=== PATIENT | male | born 1960 | race Caucasian/White ===

== ENCOUNTER 2023-07-02 10:10 | Emergency (ER) | payer MEDICARE, OTHER, SELFPAY ==
[2023-07-02 10:15] VITALS: BP 133/76
--- NOTE | 2023-07-02 10:55 | ED.GENMED ---
History of Present Illness
General
Chief Complaint: Chest Pain
Source: patient
Exam Limitations: none
Time Seen by Provider: 07/02/23 10:23
Nursing documentation reviewed up to this point in time: agreed with
Travel History
Have you had any contact with someone who has COVID-19?: No
Do you have any symptoms of coronavirus? Fever > 100 degrees, chills, cough, shortness of breath, sore throat, loss of taste or smell, muscle aches, or headache?: No
History of Present Illness
History of Present Illness:
pt is a 62 y/o M with h/o hiatal hernia, gerd
started with chest rachel that felt like a squeezing in the center of his chest yetserday am when he woke up which has been constant since then
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
presumed he was jut feeling stres yesterday
but he has felt the need to take deeper breaths and feels a little bit more out of breath which is a newer symptom. This does not feel like his previous acid reflux symptoms. He takes PPI daily for the when he took it today. Patient said when he
woke up this morning he still had the symptoms so he decided to come in. He has not really had any exertional chest pain or exertional shortness of breath. He feels worse lying flat. Patient said he saw agriculture extension specialist in his 20s when he had some
inflammation around his heart. He did not know if he had a viral cardiomyopathy myocarditis or what. He did not recall any details. He otherwise does not have any known cardiac disease. He has not had any recent long travel, previous history of
DVT or PE. Patient denies that the pain is radiating through to his back, jaw, neck, arm. He has been told he was prediabetic at 1 point but was taken off the metformin
Past History
Past History
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
ED Past Surgical History: Orthopedic
Social History
Tobacco: Non-smoker
Alcohol: Occasional
Drug: None
Personal:
Living: with family
Employment: Disabled
Family History
Family History: Other (Noncontributory)
Review of Systems
Review of Systems
Allergies reviewed?: Yes
All Other Systems: Not applicable
Phy Exam
Physical Exam
Physical Exam:
GENERAL: Alert , in no apparent distress
EYE: pupils equal and reactive
NECK: Supple
ENT: o/p clr, mmm.
CARDIAC: Regular rate and rhythm .no edema
LUNGS: Clear breath sounds bilaterally, no acute respiratory distress, no wheezes/rales/rhonchi
ABDOMEN: Soft, without focal tenderness, no r/g, no cvat, normal bowel sounds
NEUROLOGICAL: Alert and oriented, no focal neuro deficits
SKIN: Warm and dry, skin intact.
MUSCULOSKELETAL: No edema, well perfused. neg tristan's sign
PSYCH: Normal and appropriate interaction.
Scores
Heart Score for Chest Pain Patients
STEMI patient?: No
History: Slightly or Non-Suspicious
ECG: Normal
Age: >45 - <65 years
Risk Factors: 1 or 2 Risk Factors
Troponin: </= Normal Limit
Heart Score for Chest Pain Patients: 2
Heart Score Risk: 2.5% MACE over next 6 weeks
Course
Orders/Labs/Results
Orders:
Orders
07/02/23 10:17
Electrocardiogram (*1) Urgent
Reason for Study: Chest Pain
07/02/23 10:18
EKG- Treatment ONCE
07/02/23 10:56
Cardiac Monitoring- Treatment ONCE
Aspirin Chewable [Low Strength Aspirin] 324 mg PO NOW STA
CR Chest - 2 Views Urgent
Comment:
Reason For Exam: chest pain
07/02/23 11:08
Complete Blood Count/With Diff Urgent
Comprehensive Metabolic Panel Urgent
D-Dimer Urgent
Lipase Urgent
Troponin I Urgent
Abnormal Lab Results
07/02/23
11:08
MCH 31.7 H pg
(27.0-31.0)
Abs Immat Gran (auto) 0.1 H 10^3/uL
(0-0.05)
Immature Gran % 0.8 H %
(0-0.5)
Glucose 146 H mg/dl
(70-99)
Alkaline Phosphatase 132 H U/L
(38-126)
07/02/23 11:08
07/02/23 11:08
Vital Signs
Initial and Last Documented VS:
Initial Vital Signs
Temp Pulse Resp BP Pulse Ox
97.8 F 88 18 133/76 96
07/02/23 10:15 07/02/23 10:15 07/02/23 10:15 07/02/23 10:15 07/02/23 10:15
Last Documented Vital Signs
Temp Pulse Resp BP Pulse Ox
97.8 F 77 19 122/88 96
07/02/23 10:15 07/02/23 11:15 07/02/23 11:15 07/02/23 11:00 07/02/23 12:10
MDM/Problems Addressed
Differential Diagnosis Includes:
chestp ain/ ACS, PE, gerd, stress
MDM/Problems Addressed:
62 y/o M with h/o htn in epast, fhx of cad dad age 50
hiatal hernia
chest pain since yesterday
constant
not exertional
feels the urge to need to take deeper breahts, slight pain with breathing
no leg swleling
pain constant since yesterday
ekg normal
vitals normal
exam benign
cxr clear, trop neg, labs reassuring
d/w ed phsyician
Unlikely to be cardiac chest pain given the patient's description of the pain being constant, not made worse with exertion and since yesterday with normal EKG, exam and troponin. Patient is under Quique degree of stress which could be contributory.
He does have a hiatal hernia. Recommend that he follow-up with his primary care doctor and likely get a referral to cardiology for an outpatient workup
*Critical Care Note
Total Time (30-74mins, 75-104mins- exclusive of procedures): Not Applicable
ED Attending Note
-
Portions of this chart may have been created with voice recognition software.� Occasional wrong word or��sound alike� substitutions may have occurred due to the inherent limitations of voice recognition software.
Discharge Plan
Departure
Patient Disposition: Home (Routine Discharge)
Date of Disposition: 07/02/23
Time of Disposition: 12:26
Patient with high blood pressure during this ER visit?: No
Condition: Fair
Covid-19: Not Applicable
Discharge Problem:
Chest pain
Instructions: Chest Pain PCP Follow Up
Prescriptions:
No Action
hydromorphone 4 MG tablet
4 mg PO HSPRN PRN (Reason: moderate pain)
Patient Comments:
03/24/2023 : last filled 02/26/23, 30 tabs for 15 days from [facility]#[id number]
cyclobenzaprine 10 MG tablet
10 mg PO BID
omeprazole 40 mg Capsule,Delayed Release(Dr/Ec)
40 mg PO DAILY
tamsulosin 0.4 mg Capsule
0.4 mg PO BID
hydroxychloroquine 200 mg Tablet
200 mg PO BID
Cbd Lotion
1 applic topical DAILYPRN PRN (Reason: joints)
Patient Comments:
gabapentin 300 mg Capsule
600 mg PO BID
albuterol sulfate [ProAir HFA] 90 mcg/actuation Hfa Aerosol Inhaler
2 puff INHALATION R Q6HPRN PRN (Reason: SOB)
Medical Marijuana
50 mg PO HS
Rx Instructions:
edible gumcristiana, 11/26/2022
amitriptyline 25 mg Tablet
25 mg PO DAILY
amitriptyline 100 mg Tablet
100 mg PO HS
loratadine [Claritin] 10 mg Tablet
10 mg PO DAILY
Balance Of Nature
1 tab PO DAILY
lidocaine 4 % Adhesive Patch,Medicated
1 patch topical DAILY Qty: 10 0RF
Remove Patch [Remove Lidocaine Patch]
1 patch REMOVE DAILY@1999 Qty: 0 0RF
ibuprofen 200 mg tablet
400 mg PO Q6H PRN (Reason: rib pain) Qty: 1 0RF
Referrals:
Nik Iyer MD [Active] - Follow up in 1 week (Cardiology)
Tae Dawn MD [Family Provider] - Follow up in 2-3 days
Activity Restrictions/Additional Instructions:
Were not really sure the cause of your chest pain but you had a workup today to rule out any kind of cardiac emergency. You had a normal EKG and a negative D-dimer and a negative troponin this could be
From your hiatal hernia or possibly stress, musculoskeletal causes. However it is very important that you get this followed up. You may need more of a cardiac workup as an outpatient. Until then avoid any strenuous heavy lifting for significant
activity, you can continue your acid reflux medication you can even try dose of Maalox here and there to see if that helps, every 8 hours as needed.. But return for worsening symptoms like worsening shortness of breath, severe pain, pain ripping
through your back, arm or leg weakness, fever or any concern
Interventions
Interventions:
*Risk Screen - Suicide Last Done: 07/02/23 11:01
*General Assessment Last Done: 07/02/23 10:15
*Neglect/Abuse Screening Last Done: 07/02/23 11:01
ED- Fall Risk Assessment Last Done: 07/02/23 11:01
*ED COVID-19 Vaccine History Last Done: 07/02/23 10:15
*Nursing Disposition Last Done: 07/02/23 12:44
ED- Cardiac Assessment Last Done: 07/02/23 11:01
Discharge Date and Time
Discharge Date/Time: 07/02/23 12:44
[2023-07-02 11:00] VITALS: BP 122/88
[2023-07-02] MEDS: LOW STRENGTH ASPIRIN 324 MG PO (11:03)
[2023-07-02 11:14] LABS: % Basophils 0.8 % (0-2); % Eosinophils 1.9 % (0-6); % Immature Granulocytes 0.8 % (0-0.5); % Lymphocytes 33.8 % (20.5-51.1); % Monocytes 6.5 % (1.7-9.3); % Neutrophils 56.2 % (42.2-75.2); Absolute Basophils 0.1 10^3/uL (0-0.2); Absolute Eosinophils 0.1 10^3/uL (0-0.7); Absolute Immature Granulocytes 0.1 10^3/uL (0-0.05); Absolute Lymphocytes 2.1 10^3/uL (1.2-3.4); Absolute Monocytes 0.4 10^3/uL (0.1-0.6); Absolute Neutrophils 3.6 10^3/uL (1.4-6.5); Hematocrit 43.9 % (39.0-52.0); Hemoglobin 16.1 g/dL (13.0-18.0); Mean Corp Hgb Conc. 36.7 g/dL (33.0-37.0); Mean Corpuscular Hgb 31.7 pg (27.0-31.0); Mean Corpuscular Volume 86.4 fL (80.0-94.0); Nucleated Red Blood Cells % 0 % (-); Platelet Count 153 10^3/uL (130-400); Red Blood Cell Count 5.08 10^6/uL (4.70-6.10); Red Cell Dist. Width 13.3 % (11.5-14.5); White Blood Cell Count 6.3 10^3/uL (4.8-10.8)
[2023-07-02 11:27] LABS: D-Dimer 0.33 ug/mlFEU (0.00-0.50)
[2023-07-02 11:29] LABS: ALT (SGPT) 48 U/L (0-50); AST (SGOT) 42 U/L (17-59); Albumin 4.1 g/dl (3.5-5.0); Alkaline Phosphatase 132 U/L (38-126); Blood Urea Nitrogen 12 mg/dl (9-20); Calcium 9.2 mg/dl (8.4-10.2); Carbon Dioxide 29 mmol/L (22-30); Chloride 102 mmol/L (98-107); Glucose 146 mg/dl (70-99); Lipase 52 U/L (23-300); Potassium 4.5 mmol/L (3.5-5.1); Sodium 135 mmol/L (135-145); Total Protein 7.1 g/dl (6.3-8.2); eGFR > 60.00
[2023-07-02 11:38] LABS: Troponin I < 0.012 ng/ml
== END 2023-07-02 12:44 | disposition home or self-care (01) ==
LOC: EMR 10:10
PROVIDERS: Physician Assistant; EMERGENCY PHYSICIAN Emergency Medicine; FAMILY PHYSICIAN Family Medicine
DX: R07.89 Other chest pain (principal); R06.02 Shortness of breath; K44.9 Diaphragmatic hernia without obstruction or gangrene; K21.9 Gastro-esophageal reflux disease without esophagitis; Z73.3 Stress, not elsewhere classified; M06.9 Rheumatoid arthritis, unspecified; G43.909 Migraine, unspecified, not intractable, without status migrainosus; G89.29 Other chronic pain; F43.10 Post-traumatic stress disorder, unspecified; F32.A Depression, unspecified; Z98.1 Arthrodesis status; Z86.73 Personal history of transient ischemic attack (TIA), and cerebral infarction without residual deficits
CPT/HCPCS: 99283; 71046; 80053; 83690; 84484; 85025; 85379; 93005

== ENCOUNTER 2023-07-09 16:07 | Emergency (ER) | payer MEDICARE, OTHER, SELFPAY ==
[2023-07-09] VITALS (8 sets, daily range): BP systolic 105–135; BP diastolic 59–94
[2023-07-09 16:39] LABS: % Basophils 0.9 % (0-2); % Eosinophils 1.2 % (0-6); % Immature Granulocytes 0.5 % (0-0.5); % Lymphocytes 20.8 % (20.5-51.1); % Monocytes 4.9 % (1.7-9.3); % Neutrophils 71.7 % (42.2-75.2); Absolute Basophils 0.1 10^3/uL (0-0.2); Absolute Eosinophils 0.1 10^3/uL (0-0.7); Absolute Lymphocytes 1.4 10^3/uL (1.2-3.4); Absolute Monocytes 0.3 10^3/uL (0.1-0.6); Absolute Neutrophils 4.7 10^3/uL (1.4-6.5); Hematocrit 42.5 % (39.0-52.0); Hemoglobin 15.1 g/dL (13.0-18.0); Mean Corp Hgb Conc. 35.5 g/dL (33.0-37.0); Mean Corpuscular Hgb 31.7 pg (27.0-31.0); Mean Corpuscular Volume 89.3 fL (80.0-94.0); Mean Platelet Volume 10.3 fL (7.4-10.4); Nucleated Red Blood Cells % 0 % (-); Platelet Count 142 10^3/uL (130-400); Red Blood Cell Count 4.76 10^6/uL (4.70-6.10); Red Cell Dist. Width 13.4 % (11.5-14.5); White Blood Cell Count 6.5 10^3/uL (4.8-10.8)
[2023-07-09 16:54] LABS: ALT (SGPT) 56 U/L (0-50); AST (SGOT) 46 U/L (17-59); Albumin 3.7 g/dl (3.5-5.0); Alkaline Phosphatase 143 U/L (38-126); Blood Urea Nitrogen 15 mg/dl (9-20); Carbon Dioxide 28 mmol/L (22-30); Chloride 99 mmol/L (98-107); Glucose 231 mg/dl (70-99); Potassium 4.2 mmol/L (3.5-5.1); Sodium 136 mmol/L (135-145); Total Bilirubin 0.7 mg/dl (0.2-1.3); Total Protein 6.3 g/dl (6.3-8.2); eGFR > 60.00
[2023-07-09 17:02] LABS: Troponin I < 0.012 ng/ml
--- NOTE | 2023-07-09 17:34 | ED.GENMED ---
History of Present Illness
<Robin Rendon PA-C - Last Filed: 07/09/23 20:16>
General
Chief Complaint: Chest Pain
Source: patient
Time Seen by Provider: 07/09/23 17:19
Travel History
Have you had any contact with someone who has COVID-19?: No
Do you have any symptoms of coronavirus? Fever > 100 degrees, chills, cough, shortness of breath, sore throat, loss of taste or smell, muscle aches, or headache?: No
History of Present Illness
History of Present Illness:
62-year-old male with past medical history of chronic pain secondary to a traumatic accident, GERD/hiatal hernia presenting to the emergency department for the second time in 1 week for reevaluation of chest pain that woke him up from sleep a few
hours prior to arrival to the emergency department described to be diffuse chest but worse substernally, radiating towards the left arm accompanied with paresthesia to the fingertips, nausea and headache. Patient states that the symptoms are
reminiscent of what brought him to the ER last week but states the paresthesia and arm pain are different. He followed up with his primary care physician who wanted the patient to go see a braille translator and patient was able to make an appointment
for tomorrow at 2 PM to be evaluated by cardiology. Patient did not take anything for pain prior to arrival. He notes an extensive history with pain medication including Dilaudid, oxycodone and Soma. Social history was noncontributory. Family
history was significant for father having a cardiac event at the age of 50.
Past History
<Robin Rendon PA-C - Last Filed: 07/09/23 20:16>
Past History
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
ED Past Surgical History: Orthopedic
Social History
Tobacco: Non-smoker
Alcohol: Occasional
Drug: None
Personal:
Living: with family
Employment: Disabled
Family History
Family History: Other (Noncontributory)
Review of Systems
<Robin Rendon PA-C - Last Filed: 07/09/23 20:16>
Review of Systems
All Other Systems: ROS reviewed and negative except as documented in HPI and ROS
Phy Exam
<Robin Rendon PA-C - Last Filed: 07/09/23 20:16>
Physical Exam
Physical Exam:
GENERAL: Alert , in no apparent distress
EYE: conjunctiva clear
NECK: Supple
ENT: o/p clr, mmm.
CARDIAC: Regular rate and rhythm, no murmur
Chest wall: Mild tenderness over the sternum the patient states this pain is different than the pain he experienced upon awakening this afternoon
LUNGS: Clear breath sounds bilaterally, no acute respiratory distress, no wheezes/rales/rhonchi
Abdomen: Soft, nontender, nondistended
NEUROLOGICAL: Alert and oriented
SKIN: Warm and dry, skin intact.
MUSCULOSKELETAL: well perfused. No edema
PSYCH: Normal and appropriate interaction.
Scores
<Robin Rendon PA-C - Last Filed: 07/09/23 20:16>
Heart Failure Risk
Heart Failure Risk Score: Not Applicable
Heart Score for Chest Pain Patients
STEMI patient?: No
History: Slightly or Non-Suspicious
ECG: Normal
Age: >45 - <65 years
Risk Factors: 1 or 2 Risk Factors
Troponin: </= Normal Limit
Heart Score for Chest Pain Patients: 2
Heart Score Risk: 2.5% MACE over next 6 weeks
Withdrawal Assessment of Alcohol
Withdrawal Assessment Completed?: Not applicable
<Fabricio Esparza MD - Last Filed: 07/09/23 18:42>
Heart Score for Chest Pain Patients
Heart Score for Chest Pain Patients: 2
Heart Score Risk: 2.5% MACE over next 6 weeks
Course
<Robin Rendon PA-C - Last Filed: 07/09/23 20:16>
Orders/Labs/Results
Orders:
Orders
07/09/23 16:11
Electrocardiogram (*1) Urgent
Reason for Study: Chest Pain
EKG- Treatment ONCE
07/09/23 16:32
Complete Blood Count/With Diff Urgent
Comprehensive Metabolic Panel Urgent
Troponin I Urgent
07/09/23 17:50
CT Chest/abd/pelvis Angio W/wo Urgent
Comment:
Reason For Exam: chest pain/back pain, radiaiting to left arm
HYDROmorphone [Dilaudid] 0.5 mg IV NOW STA
07/09/23 19:18
Electrocardiogram (*1) Urgent
Reason for Study: Chest Pain
EKG- Treatment ONCE
07/09/23 19:28
Troponin I Urgent
07/09/23 19:38
Ketorolac [Toradol] 30 mg IV NOW STA
Abnormal Lab Results
07/09/23
16:32
MCH 31.7 H pg
(27.0-31.0)
Glucose 231 H mg/dl
(70-99)
ALT 56 H U/L
(0-50)
Alkaline Phosphatase 143 H U/L
(38-126)
07/09/23 16:32
07/09/23 16:32
Vital Signs
Initial and Last Documented VS:
Initial Vital Signs
Temp Pulse Resp BP Pulse Ox
98.1 F 92 16 116/59 98
07/09/23 16:09 07/09/23 16:09 07/09/23 16:09 07/09/23 16:09 07/09/23 16:09
Last Documented Vital Signs
Temp Pulse Resp BP Pulse Ox
98.6 F 92 23 132/76 97
07/09/23 18:41 07/09/23 19:45 07/09/23 19:45 07/09/23 19:00 07/09/23 19:45
Senior Site Manager consulted with Physician
Senior Site Manager consulted with physician?: Yes
Name of Physician Consulted: Isaias
<Fabricio Esparza MD - Last Filed: 07/09/23 18:42>
Orders/Labs/Results
Orders:
Orders
07/09/23 16:11
Electrocardiogram (*1) Urgent
Reason for Study: Chest Pain
EKG- Treatment ONCE
07/09/23 16:32
Complete Blood Count/With Diff Urgent
Comprehensive Metabolic Panel Urgent
Troponin I Urgent
07/09/23 17:50
CT Chest/abd/pelvis Angio W/wo Urgent
Comment:
Reason For Exam: chest pain/back pain, radiaiting to left arm
HYDROmorphone [Dilaudid] 0.5 mg IV NOW STA
07/09/23 19:18
Electrocardiogram (*1) Urgent
Reason for Study: Chest Pain
EKG- Treatment ONCE
07/09/23 19:28
Troponin I Urgent
07/09/23 19:38
Ketorolac [Toradol] 30 mg IV NOW STA
Abnormal Lab Results
07/09/23
16:32
MCH 31.7 H pg
(27.0-31.0)
Glucose 231 H mg/dl
(70-99)
ALT 56 H U/L
(0-50)
Alkaline Phosphatase 143 H U/L
(38-126)
07/09/23 16:32
07/09/23 16:32
Vital Signs
Initial and Last Documented VS:
Initial Vital Signs
Temp Pulse Resp BP Pulse Ox
98.1 F 92 16 116/59 98
07/09/23 16:09 07/09/23 16:09 07/09/23 16:09 07/09/23 16:09 07/09/23 16:09
Last Documented Vital Signs
Temp Pulse Resp BP Pulse Ox
98.6 F 92 23 132/76 97
07/09/23 18:41 07/09/23 19:45 07/09/23 19:45 07/09/23 19:00 07/09/23 19:45
<Robin Rendon PA-C - Last Filed: 07/09/23 20:16>
MDM/Problems Addressed
Differential Diagnosis Includes:
Musculoskeletal etiology, exacerbation of patient's chronic pain, patient had a negative D-dimer on workup 1 week ago so I do not have concern for PE, less likely atypical ACS presentation, dissection considered although less likely given symptoms
have been intermittent for a week
MDM/Problems Addressed:
62-year-old male presenting back to the emergency department for evaluation of chest pain. Today patient's symptoms did change slightly with pain in the left arm accompanied with paresthesia. Patient does have risk factor for ACS including family
history however I am more suspicious for a likely exacerbation of chronic pain opposed to an acute emergent pathology. Patient does have follow-up with cardiology scheduled for tomorrow. Will repeat troponin and EKG. Patient did have a CTA of his
chest in March 2023 which was negative for any acute pathology.
<Robin Rendon PA-C - Last Filed: 07/09/23 20:16>
*Radiology
Radiology exam reviewed: preliminary read by ED provider
*Pulse Oximetry
Patient hypoxic: no
*EKG
Interpreted by ED Provider?: Yes
Comparison EKG: no changes
Heart Rate: 83
Rate: normal
Rhythm: sinus
[place]: normal axis
Ischemia: no ischemia
*Body Designer Interpretation
Rate: normal
Rhythm: sinus
*Critical Care Note
Total Time (30-74mins, 75-104mins- exclusive of procedures): Not Applicable
Data Reviewed
Review of Other/Old Records Reveals: Labs, Records and Radiology Studies
Source: patient and records
<Robin Rendon PA-C - Last Filed: 07/09/23 20:16>
Comment
Comment:
07/09/2023 1809 PM: patient seen in conjunction with Dr. Esparza, decision to obtain CTA dissection protocol made. Will also repeat EKG and troponin.
Patient Management
Escalation/DeEscalation of care consider admission/obs:
Patient CTA ultimately came back negative. There was a noted pulmonary nodule however this is likely benign based off of previous imaging. I printed a copy of the CTA report for the patient and his . Repeat troponin and EKG remain
unremarkable. Patient has follow-up with cardiology tomorrow at 2 PM. I suspect muscular etiology to be the most likely cause of symptoms. Patient is otherwise stable for discharge home.
ED Attending Note
<Robin Rendon PA-C - Last Filed: 07/09/23 20:16>
-
Portions of this chart may have been created with voice recognition software.� Occasional wrong word or��sound alike� substitutions may have occurred due to the inherent limitations of voice recognition software.
<Fabricio Esparza MD - Last Filed: 07/09/23 18:42>
ED Attending Note
Patient seen and examined by attending physician: Yes
I performed the substantive portion of visit, reviewed & personally made and approve the management plan that is documented in note by myself or MARTÍNEZ.: Yes
ED Attending Note:
62-year-old male recurring chest pain. Started this afternoon woke him from his sleep. Sharp midsternal pleuritic in nature. Also has had some headache recently. Some symptoms down the left arm. Pain is worse with breathing and patient states
that his taking shallow breaths. Some increased back pain although he has chronic back pain. Was here last week for chest pain. On exam patient is nontoxic but appears mildly uncomfortable. He is mildly splinting with breathing. However no
respiratory distress. Lungs are clear and equal. Heart regular rate and rhythm. No chest wall tenderness. Abdomen is nontender. Is warm and dry and perfusing well. EKG is unremarkable. Initial troponin negative. Symptoms are atypical of
cardiac however repeat troponin and EKG will be done. With some pain rating to the back a CT angiography will be performed along with repeat troponin and EKG
Discharge Plan
Departure
Patient Disposition: Home (Routine Discharge)
Date of Disposition: 07/09/23
Time of Disposition: 20:06
Patient with high blood pressure during this ER visit?: No
Discharge Problem:
Chest pain
Instructions: Chest Pain That Is Not Caused by the Heart (DC)
Prescriptions:
No Action
hydromorphone 4 MG tablet
4 mg PO HSPRN PRN (Reason: moderate pain)
Patient Comments:
03/24/2023 : last filled 02/26/23, 30 tabs for 15 days from [facility]#[id number]
cyclobenzaprine 10 MG tablet
10 mg PO BID
omeprazole 40 mg Capsule,Delayed Release(Dr/Ec)
40 mg PO DAILY
tamsulosin 0.4 mg Capsule
0.4 mg PO BID
hydroxychloroquine 200 mg Tablet
200 mg PO BID
Cbd Lotion
1 applic topical DAILYPRN PRN (Reason: joints)
Patient Comments:
gabapentin 300 mg Capsule
600 mg PO BID
albuterol sulfate [ProAir HFA] 90 mcg/actuation Hfa Aerosol Inhaler
2 puff INHALATION R Q6HPRN PRN (Reason: SOB)
Medical Marijuana
50 mg PO HS
Rx Instructions:
edible gummy, 11/26/2022
amitriptyline 25 mg Tablet
25 mg PO DAILY
amitriptyline 100 mg Tablet
100 mg PO HS
loratadine [Claritin] 10 mg Tablet
10 mg PO DAILY
Balance Of Nature
1 tab PO DAILY
lidocaine 4 % Adhesive Patch,Medicated
1 patch topical DAILY Qty: 10 0RF
Remove Patch [Remove Lidocaine Patch]
1 patch REMOVE DAILY@2000 Qty: 0 0RF
ibuprofen 200 mg tablet
400 mg PO Q6H PRN (Reason: rib pain) Qty: 1 0RF
Referrals:
Tae Dawn MD [Family Provider] -
Interventions
Interventions:
*Risk Screen - Suicide Last Done: 07/09/23 16:27
*General Assessment Last Done: 07/09/23 16:27
*Neglect/Abuse Screening Last Done: 07/09/23 16:27
*ED COVID-19 Vaccine History Last Done: 07/09/23 16:09
ED- Cardiac Assessment Last Done: 07/09/23 16:27
[2023-07-09] MEDS: DILAUDID 0.5 MG IV (18:00)
[2023-07-09] MEDS: TORADOL 30 MG IV (19:42)
[2023-07-09 19:58] LABS: Troponin I < 0.012 ng/ml
== END 2023-07-09 20:37 | disposition home or self-care (01) ==
LOC: EMR 16:07
PROVIDERS: Physician Assistant; Physician Assistant Medical; EMERGENCY PHYSICIAN Emergency Medicine; FAMILY PHYSICIAN Family Medicine
DX: R07.89 Other chest pain (principal); K21.9 Gastro-esophageal reflux disease without esophagitis; G89.29 Other chronic pain; M06.9 Rheumatoid arthritis, unspecified; F43.10 Post-traumatic stress disorder, unspecified
CPT/HCPCS: 99284; 96374; 96375; 71275; 74174; 80053; 84484; 85025; 93005; Q9967

== ENCOUNTER → 2023-07-15 12:08 | Outpatient (REF) | payer MEDICARE, OTHER, SELFPAY | LOC: DHCBC/DCA 12:08 | PROVIDERS: ATTENDING PHYSICIAN Internal Medicine Cardiovascular Disease; FAMILY PHYSICIAN Family Medicine | DX: R07.2 Precordial pain (principal) | CPT/HCPCS: 78452; 93017; A9500; J2785 ==

== ENCOUNTER → 2024-12-14 07:48 | Outpatient (REF) | payer MEDICARE, OTHER, SELFPAY | LOC: RAD 07:48 | PROVIDERS: ATTENDING PHYSICIAN Family Medicine | DX: Q27.8 Other specified congenital malformations of peripheral vascular system (principal) | CPT/HCPCS: 93922; 93925 ==

== ENCOUNTER → 2025-01-05 08:19 | Outpatient (REF) | payer MEDICARE, OTHER, SELFPAY ==
[2025-01-05 10:58] LABS: D-Dimer 0.28 ug/mlFEU (0.00-0.50)
== END ==
LOC: RAD 08:19
PROVIDERS: ATTENDING PHYSICIAN Registered Nurse; FAMILY PHYSICIAN Family Medicine; REFERRING PHYSICIAN Nurse Practitioner Adult Health
DX: R22.43 Localized swelling, mass and lump, lower limb, bilateral (principal); R06.00 Dyspnea, unspecified; I87.2 Venous insufficiency (chronic) (peripheral)
CPT/HCPCS: 36415; 71046; 85379; 93970

== ENCOUNTER → 2025-02-23 12:45 | Outpatient (REF) | payer MEDICARE, OTHER, SELFPAY | LOC: RCS 12:45 | PROVIDERS: ATTENDING PHYSICIAN Nurse Practitioner; FAMILY PHYSICIAN Family Medicine | DX: R06.02 Shortness of breath (principal) | CPT/HCPCS: 93306 ==

== ENCOUNTER → 2025-05-03 11:54 | Outpatient (REF) | payer MEDICARE, OTHER, SELFPAY | LOC: REG 11:54 | PROVIDERS: ATTENDING PHYSICIAN Family Medicine | DX: M05.40 Rheumatoid myopathy with rheumatoid arthritis of unspecified site (principal); G89.4 Chronic pain syndrome; E11.69 Type 2 diabetes mellitus with other specified complication; F43.10 Post-traumatic stress disorder, unspecified; R05.3 Chronic cough | CPT/HCPCS: 71046 ==